=== PATIENT | male | born 1995 | race Caucasian/White ===

== ENCOUNTER 2024-12-31 20:41 | Emergency (ER) | payer BC ==
[~2024-12-31] VITALS: Ht 180.3 cm; Wt 79.4 kg
[2024-12-31 20:50] VITALS: TEMP 98.3
[2024-12-31 21:10] VITALS: BP 134/75; O2SAT 98
[2024-12-31] MEDS ORDERED: TDAP [DIPH/PERTUSSIS/TET] 0.5 ML VIAL IM ONE ×2 (21:49→22:00)
== END 2024-12-31 21:56 | disposition home or self-care (01) ==
LOC: ER 20:49
DX: S61.412A Laceration without foreign body of left hand, initial encounter (principal); Z60.2 Problems related to living alone; W26.0XXA Contact with knife, initial encounter; Y93.89 Activity, other specified; Y92.000 Kitchen of unspecified non-institutional (private) residence as the place of occurrence of the external cause; Y99.8 Other external cause status
CPT/HCPCS: 90715